=== PATIENT | male | born 1945 | race Caucasian/White ===

== ENCOUNTER → 2019-06-05 | Outpatient (CLI) | payer MEDICARE | LOC: PLD 07:37 → LAB SHORT 07:37 | DX: D48.5 Neoplasm of uncertain behavior of skin (principal) | CPT/HCPCS: 88305 ==

== ENCOUNTER 2021-01-24 15:23 | Emergency (ER) | payer OTHER, MEDICARE ==
[~2021-01-24] VITALS: Ht 175.3 cm; Wt 79.4 kg
[2021-01-24] MEDS ORDERED: Ativan1 MG PO (15:39)
[2021-01-24] MEDS ORDERED: OMEP20ER PO (15:39)
[2021-01-24] MEDS ORDERED: Amoxicillin500 MG PO (15:48)
== END 2021-01-24 15:57 | disposition home or self-care (01) ==
LOC: ER 15:23
DX: J02.9 Acute pharyngitis, unspecified (principal); J44.9 Chronic obstructive pulmonary disease, unspecified
CPT/HCPCS: 99284

== ENCOUNTER 2025-10-28 09:05 | Day surgery (SDC) | payer OTHER ==
[~2025-10-28] VITALS: Ht 175.3 cm; Wt 83.0 kg
[~2025-10-28 09:05] MED LIST: Amoxicillin500 MG PO; Ativan1 MG PO; CeFAZolin Sodium 2,000 MG VIAL ONE; NS 500 ML IV ONE; OMEP20ER PO
[2025-10-28] MEDS ORDERED: MIRT15 PO (09:23)
[2025-10-28] MEDS ORDERED: ERGO400 (09:24)
[2025-10-28] MEDS ORDERED: ALBU90OI (09:24)
[2025-10-28] MEDS ORDERED: NS 500 ML IV ONE (09:44)
[2025-10-28] MEDS ORDERED: FentaNYL Citrate 50 MCG/ML 2 ML Injection ONE (09:48)
[2025-10-28 10:36] VITALS: BP 95/69
== END 2025-10-28 10:51 | disposition home or self-care (01) ==
LOC: ORSCSDS 09:05
PROVIDERS: Orthopaedic Surgery
PROC: 0LN70ZZ Release Right Hand Tendon, Open Approach (ICD-10-PCS; principal; 2025-10-28 10:00)
DX: M65.341 Trigger finger, right ring finger (principal); F41.9 Anxiety disorder, unspecified; Z79.899 Other long term (current) drug therapy; Z87.891 Personal history of nicotine dependence
CPT/HCPCS: J0690; J2704; J3010; J7040